=== PATIENT | female | born 1965 | race Caucasian/White ===

== ENCOUNTER → 2016-04-17 | Emergency (ER) | payer OTHER ==
[2016-04-17 06:07] LABS: BASO % 0.6 % (0-6); EOS % 3.1 % (0-6); GRAN % 55.3 % (47-80); HEMATOCRIT 39.6 % (35.0-47.0); HEMOGLOBIN 13.1 gm/dl (11.6-16.0); LYMPH % 34.7 % (16-45); MEAN CELL VOLUME 83.9 fl (81-97); MEAN CORPUSCULAR HEMOGLOBIN 27.8 pg (27-33); MEAN CORPUSCULAR HGB CONC 33.1 g/dl (32-36); MEAN PLATELET VOLUME 9.9 fl (7.4-10.4); MONO % 6.3 % (0-9); PLATELET COUNT 220 K/uL (130-400); RED BLOOD COUNT 4.72 M/uL (3.80-5.40); RED CELL DISTRIBUTION WIDTH 13.7 % (11.5-14.5); WHITE BLOOD COUNT W/O DIFF 5.4 K/uL (4.2-12.2)
[2016-04-17 07:01] LABS: ALB/GLOB RATIO 1.5 (1.1-1.8); ALBUMIN 4.4 gm/dL (3.5-5.0); ALKALINE PHOSPHATASE 78 U/L (38-126); ALT/SGPT 40 U/L (9-52); ANION GAP 13.2 (7-16); AST/SGOT 33 U/L (14-36); BLOOD UREA NITROGEN 19 mg/dL (7-17); CARBON DIOXIDE 24.8 mmol/L (22-30); CHOLESTEROL 135 mg/dL (0-200); CREATININE 0.7 mg/dL (0.52-1.04); EST GLOMERULAR FILTRATION RATE > 60 ml/min; GLUCOSE,RANDOM 108 mg/dL (70-110); HDL CHOLESTEROL 48 mg/dL (40-60); TOTAL PROTEIN 7.3 gm/dL (6.3-8.2); TRIGLYCERIDES 103 mg/dL (30-200); VLDL CHOLESTEROL 20 mg/dL (10.00-40.00)
[2016-04-17 07:11] LABS: LDL CHOLESTEROL/MEASURED 76.6 mg/dL (0-100)
[2016-04-17 07:31] LABS: THYROID STIMULATING HORMONE 5.75 uIU/ml (0.465-4.68)
== END | disposition home or self-care (01) ==
LOC: LAB 05:41
DX: Z00.00 Encounter for general adult medical examination without abnormal findings (principal)
CPT/HCPCS: 80053; 80061; 82306; 84439; 84443; 85025